=== PATIENT | female | born 1975 ===

== ENCOUNTER 2024-05-16 12:44 | Outpatient (CLI) | payer OTHER, SELFPAY ==
--- OUTSIDE RECORDS SUMMARY | 2024-05-16 14:07 | XMS_ITS | Referral Summary ---
Author Organization [facility] Address [address] [place] [address] [place] [address] Care Team Providers Care Residential Finish Carpenter Name Role Phone Dee Jewell MD Primary Care Provider [phone] Adamaris Harris MD Unavailable [phone] Allergies No known active allergies Medications hydroCHLOROthiazide (HYDRODIURIL) 25 mg tablet Take 1 tablet (25 mg total) by mouth daily Active gabapentin (NEURONTIN) 300 mg capsule Take 1 capsule (300 mg total) by mouth 3 (three) times a day Active promethazine-DM (PROMETHAZINE-DM) 1.25-3 mg/mL syrup Take 5 mL by mouth 4 (four) times a day as needed for cough 118 mL 2 Active omeprazole (PriLOSEC) 20 mg capsule Take 1 capsule (20 mg total) by mouth daily 2 Active ferrous sulfate 325 mg (65 mg of elemental iron) tablet Take 1 tablet (325 mg total) by mouth daily 2 Active cyclobenzaprine (FLEXERIL) 10 mg tablet Take 1 tablet (10 mg total) by mouth nightly as needed 2 Active aspirin 81 mg enteric coated tabletIndications:Ce rebral Thromboembolism Prevention Take 1 tablet (81 mg total) by mouth daily 30 tablet 11 2 Active meloxicam (MOBIC) 15 mg tabletIndications:Os teoarthritis Take 1 tablet (15 mg total) by mouth daily 30 tablet 2 4 08/01/19 25 Active naproxen (NAPROSYN) 500 mg tablet Take 1 tablet (500 mg total) by mouth 2 (two) times a day with meals 10 tablet 4 Active Active Problems Problem Noted Date Diagnosed Date Encounter for screening for malignant neoplasm o f colon 05/27/2023 Rectal bleed 05/20/2023 Hyperlipidemia 12/11/2022 TIA (transient ischemic attack) 02/08/2022 Left-sided weakness 02/07/2022 Influenza A 01/31/2022 Nonintractable headache 01/31/2022 Chronic midline low back pain with bilateral sci atica 07/22/2021 Paresthesia of both hands 07/22/2021 Gastroesophageal reflux disease without esophagi tis 07/03/2020 Generalized abdominal pain 07/03/2020 Other constipation 07/03/2020 Essential hypertension 04/03/2020 Neck sprain 06/12/2015 Overview (06/04/2016): Neck sprain Contusion of hip 06/12/2015 Overview (06/04/2016): Contusion of hip Hyperventilating 08/31/2010 Complicated migraine Immunizations Immunization Administration Dates Next Due Tdap 05/28/2014 Social History Tobacco Use Types Packs/Day Years Used Date Smoking Tobacco: Every Day Cigarettes 0.1 20 Smokeless Tobacco: Never Tobacco Cessation:Ready to Q uit: Not Asked; Counseling Given: Not Answered Comments:Smoking History Packs/day: 5 Cigarettes Alcohol Use Standard Drinks/Week Comments No 0 (1 standard drink = 0.6 oz pur e alcohol) AUDIT-C Answer Date Recorded Q1: How often do you have a drink containing alcohol? Never 10/14/2023 Q2: How many drinks containi ng alcohol do you have on a typical day when you are drinking? Patient does not drink Q3: How often do you have si x or more drinks on one occasion? Never 10/14/2023 PHQ-2 Answer Date Recorded PHQ-2 Total Score 0 02/08/2022 Personal Safety Answer Date Recorded Have you ever been in or are you currently in a harmful physical or emotional relationship or is someone making you feel afraid or unsafe? 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 Gender Identity Female 05/26/2023 1:21 PM CDT Sexual Orientation Not on file Last Filed Vital Signs Vital Sign Reading Time Taken Comments Blood Pressure 127/98 10/14/2023 12:45 PM CDT Pulse 88 10/14/2023 12:45 PM CDT Temperature 36.7 C (98.1 F) 10/14/2023 10:36 AM CDT Respiratory Rate 20 10/14/2023 12:45 PM CDT Oxygen Saturation 97% 10/14/2023 12:45 PM CDT Inhaled Oxygen Concentration - - Weight 77.1 kg (170 lb) 10/14/2023 10:36 AM CDT Height 165.1 cm (5' 5 ) 10/14/2023 10:36 AM CDT Body Mass Index 28.29 10/14/2023 10:36 AM CDT Plan of Treatment Not on file Procedures Procedure Name Priority Date/Time Associated Diagnosis Comments COLONOSCOPY 10/14/2023 10:31 AM CDT SCREENING MAMMOGRAM BILATERAL W REDD Schedule Routine, Read Routine (OP Routine) 08/05/2023 2:58 PM CDT Screening breast examination from Last 3 Months or Most Recently Relevant to Health Maintenance Results * Colonoscopy (10/14/2023 10:31 AM CDT) Anatomical Region Laterality Modality Other Narrative Procedure Note Adamaris Harris MD - 10/14/2023 10:31 AM CDT [facility] Endoscopy [facility] Patient Name: Shilpa Martinez Procedure Date: 10/14/2023 10:31 AM Date of : 1975 Admit Type: Outpatient Age: 48 Gender: Female Note Status: Finalized Attending MD: Adamaris Harris M.D. Procedure Date: 10/14/2023 Procedure: Colonoscopy Indications: Colon cancer screening in patient at increasedrisk: Colorectal cancer in father, This is the patient's first colonoscopy Providers: Adamaris Harris M.D., [place], PALMA (Anesthesia Staff), Yoly Cardozo, SHAYY, Lemuel Ludwig, Head And Neck Surgeon, Keiry Puente RN Referring MD: Medicines: Monitored Anesthesia Care Complications: No immediate complications. Estimated Blood Loss: Estimated blood loss: none. Procedure: Pre-Anesthesia Assessment: - Prior to the procedure, a History and Physicalwas performed, and patient medications and allergieswere reviewed. The patient is competent. The risks and benefits of the procedure and the sedation optionsand risks were discussed with the patient. Allquestions were answered and informed consent was obtained. Patient identification and proposed procedure were verified by the physician, the nurse and the art gilder in the procedure room. Mental Status Examination: alert and oriented. AirwayExamination: normal oropharyngeal airway and neck mobility. Respiratory Examination: clear to auscultation. CV Examination: normal. Prophylactic Antibiotics: The patient does not require prophylactic antibiotics. Prior Anticoagulants: The patient has taken no anticoagulant or antiplatelet agents. ASA Grade Assessment: III - A patient with severe systemic disease. After reviewing the risks and benefits,the patient was deemed in satisfactory condition to undergo the procedure. The anesthesia plan was touse monitored anesthesia care (MAC). Immediately priorto administration of medications, the patient was re-assessed for adequacy to receive sedatives. The heart rate, respiratory rate, oxygen saturations, blood pressure, adequacy of pulmonary ventilation,and response to care were monitored throughout the procedure. The physical status of the patient was re-assessed after the procedure. - The risks and benefits of the procedure and the sedation options and risks were discussed with the patient. All questions were answered and informed consent was obtained. After I obtained informed consent, the scope was passed under direct vision. Throughout theprocedure, the patient's blood pressure, pulse, and oxygen saturations were monitored continuously. The scopewas passed under direct vision. The Colonoscope was introduced through the anus and advanced to the the cecum, identified by appendiceal orifice andileocecal valve. The colonoscopy was performed without difficulty. The patient tolerated the procedurewell. The quality of the bowel preparation was adequate.The bowel preparation used was Clenpiq via split dose instruction. Findings: The entire examined colon appeared normal on direct and retroflexion views. Impression: - The entire examined colon is normal on direct and retroflexion views. - No specimens collected. Recommendation: - The following measures may reduce the risk ofcolon cancer: High fiber diet and low fat diet (especiallyreduction of red meat consumption). Supplement with 400-800mg vitamin E, 800 - 1000 mcg folic acid, 200 mgselinium and 7125-0572 mg calcium. Exercise has been shownto be beneficial. It has also been reported thatregular use of aspirin can reduce the risk of cancer - 325mg daily four or more times per week. Aspirin use can cause bleeding (stomach ulcers). Aspirin andvitamin E should not be used for 2 weeks if biopsy or polyps have been removed. - Repeat colonoscopy in 5 years for screeningpurposes. Procedure Code(s): --- Professional --- 78846, Colonoscopy, flexible; diagnostic, including collection of specimen(s) by brushing or washing,when performed (separate procedure) Diagnosis Code(s): --- Professional --- Z80.0, Family history of malignant neoplasm of digestive organs CPT copyright 2020 [employer]. All rights reserved. The codes documented in this report are preliminary and upon industrial renderer reviewmay be revised to meet current compliance requirements. Electronically signed by Adamaris Harris M.D. Adamaris Harris M.D. 10/14/2023 12:20:09 PM Number of Addenda: 0 Note Initiated On: 10/14/2023 10:31 AM Adamaris Harris MD ENDOSCOPY PROCEDURES Fi nal Result * Screening Mammogram Bilateral W Redd (08/05/2023 2:58 PM CDT) Anatomical Region Laterality Modality Breast Bilateral Mammography 08/08/2023 8:39 AM CDT Impressions 08/08/2023 8:39 AM CDT No evidence of malignancy in either breast. FINAL ASSESSMENT: BI-RADS Category 1: Negative. RECOMMENDATION: Recommend return for annual screening mammogram in 12 months. Electronically signed by: Miya Worthington M.D. Narrative 08/08/2023 8:39 AM CDT EXAMINATION: BILATERAL SCREENING MAMMOGRAM COMPARISON: 09/23/2018 and 07/21/2015 TECHNIQUE: Full-field 2D and digital breast tomosynthesis (DBT) images were obtained. CAD was utilized. BREAST PARENCHYMAL COMPOSITION: There are scattered areas of fibroglandular density. FINDINGS: There is no suspicious mass, calcification, or distortion in either breast. Clari Hamilton NP IMG MAMMO PROCEDURES Final Result from Last 3 Months or Most Recently Relevant to Health Maintenance Insurance [facility] Advance Directives For more information, please contact: [phone] * Full Code (Latest Code Status on File) Date Activated Date Inactivated Comments 05/20/2023 4:51 PM 05/22/2023 4:28 PM * Full Code Date Activated Date Inactivated Comments 02/07/2022 9:33 PM 02/09/2022 8:31 PM Care Teams Residential Finish Carpenter Relationship Specialty Start Date End Date Dee Jewell MD [address] [place] [address] PCP - General Family Medicine 05/20/23 [place] [id number] [address] Consulting Physician Gastroenterology 05/22/23
--- OUTSIDE RECORDS SUMMARY | 2024-05-16 14:07 | XMS_ITS | Clinical Summary ---
Author Organization [facility] Address [address] [place] [address] [place] [address] Care Team Providers Care Biological Science Technician Fish Name Role Phone Dee Jewell MD Primary Care Provider [phone] Adamaris Harris MD Unavailable [phone] Allergies No known active allergies Medications hydroCHLOROthiazide [...] times a day with meals 10 tablet Active Active Problems Problem Noted Date Diagnosed [...] Immunization Administration Dates Next Due Tdap 05/28/2014 Surgical History Surgery Date Site/Laterality Comments OTHER SURGICAL HISTORY 02/29/1996 - 02/27/1997 : OTHER SURGICAL HISTORY 02/28/1989 - 02/27/1990 : OTHER SURGICAL HISTORY 02/28/2001 - 02/27/2002 : OTHER SURGICAL HISTORY 02/28/2003 - 02/28/2004 : OTHER SURGICAL HISTORY 02/28/2003 - 02/28/2004 : OTHER SURGICAL HISTORY 02/28/2005 - 02/27/2006 : Ectopic OTHER SURGICAL HISTORY 02/28/2007 - 02/28/2008 : OTHER SURGICAL HISTORY 02/28/2013 - 02/27/2014 : Spontaneaous OTHER SURGICAL HISTORY 02/28/2013 - 02/27/2014 : Spontaneaous SECTION COLONOSCOPY 10/14/2023 Medical History Medical History Date Comments Hx Other Medical ; Outc ome: 40W0D week 7lb(s) 10 oz Male Hx Other Medical ; Comm ents: c/b PTD, eclampsia; pt was a teen- I didn't know I was until that day , reports monthly bleeding; woke up, felt poorly, seized; given up for adoption Hx Other Medical ; Outc ome: 40W0D week 7lb(s) 8 oz Female Hx Other Medical ; Comm ents: TIUP; Outcome: 28W0D week 2lb(s) 10 oz Female Hx Other Medical ; Comm ents: TIUP; Outcome: 28W0D week 2lb(s) 8 oz Female Hx Other Medical ; Comm ents: salpingectomy ?side Hx Other Medical ; Outc ome: 39W0D week 7lb(s) 12 oz Male Hx Other Medical Migraines Hypertension TIA (transient ischemic attack) Arthritis Neuropathy GERD (gastroesophageal reflux disease) Chronic constipation Hemorrhoid Colon polyp Anemia Family History Medical History Relation Name Comments Colon cancer Father Cancer, colon; Diabetes Father Diabetes mellit us; Hypertension Father Hypertension; Other Father Blood clots, le gs; Breast cancer Father's Sister Diabetes Mother Diabetes mellit us; Heart attack Mother heart attack; Heart failure Mother Congestive hea rt failure; Hyperlipidemia Mother High choleste rol; Hypertension Mother Hypertension; Stroke Mother Stroke; Relation Name Status Comments Father Father's Sister Mother Social History Tobacco Use Types Packs/Day Years [...] on file Legal Sex Female 1:59 PM TECHNICAL SUPPORT 1 SOFTWARE ENGINEER Gender Identity Female 05/26/2023 1:21 PM CDT Sexual Orientation Not on file Obstetrics History Para Term AB IAB SAB Ectopic Multiple Livin g Live Births 6 5 5 Date Outcome GA Total Labor Labor/2nd/3rd Weight Sex Type Anes PTL Gracie A1 A5 Name Clin Term Term Term Term Term Last Filed Vital Signs Vital Sign Reading [...] 10/14/2023 10:36 AM CDT Plan of Treatment Health Maintenance Due Date Last Done Comments Cervical Cancer Screening 1975 Hepatitis C Screening 1975 Hepatitis B Screening 08/10/1991 Regular Well Visit/Exam 18-64 08/10/1991 Pneumococcal vaccine <65 (1 of 2 - PCV) 1992 Depression Screening 02/07/2023 02/07/2022, 02/08/20 22 Zoster Vaccine (1 of 2) 08/10/2023 Influenza Vaccine (#1) 2023 DTaP/Tdap/Td Vaccine (2 - Td or Tdap) 05/28/2024 05/28/2014 Breast Cancer Screening-Mammogram 08/04/2024 08/05/2023, 09/23/2018, 09/23/2018, Additional history exists Colon Cancer Screening-Colonoscopy 10/13/20332023 Procedures Procedure Name Priority Date/Time Associated Diagnosis [...] Harris MD - 10/14/2023 10:31 AM CDT [facility] Endoscopy Lab Patient Name: Shilpa Martinez Procedure Date: 10/14/2023 10:31 AM Date of : 1975 Admit Type: Outpatient Age: 48 Gender: Female Note Status: Finalized Attending MD: Adamaris Harris M.D. Procedure Date: 10/14/2023 Procedure: Colonoscopy Indications: Colon cancer screening [facility]: Colorectal cancer in father, This is the patient's first colonoscopy Providers: Adamaris Harris M.D., [place], PALMA (Anesthesia Staff), Yoly Cardozo RN, Lemuel Ludwig, Beam Warper, Keiry Puente RN Referring MD: Medicines: Monitored [...] by the physician, the nurse and the rodent exterminator in the procedure room. Mental Status Examination: [...] 1000 mcg folic acid, 200 mgselinium and 1264-9122 mg calcium. Exercise has been shownto be [...] for screeningpurposes. Procedure Code(s): --- Professional --- 22698, Colonoscopy, flexible; diagnostic, including collection of specimen(s) by brushing or washing,when performed (separate procedure) Diagnosis Code(s): --- Professional --- Z80.0, Family history of malignant neoplasm of digestive organs CPT copyright 2020 [employer]. All rights reserved. The codes documented in this report are preliminary and upon marble cutter reviewmay be revised to meet current compliance [...] Most Recently Relevant to Health Maintenance Insurance [address] [place] [id number] [facility] [place] [id number] [facility] Advance Directives For more information, please contact: [phone] * Full Code (Latest Code Status on File) Date Activated Date Inactivated Comments 05/20/2023 4:51 PM 05/22/2023 4:28 PM * Full Code Date Activated Date Inactivated Comments 02/07/2022 9:33 PM 02/09/2022 8:31 PM Care Teams Biological Science Technician Fish Relationship Specialty Start Date End Date Dee Jewell MD [address] [place] [address] PCP - General Family Medicine 05/20/23 [place] [id number] [address] Consulting Physician Gastroenterology 05/22/23
--- OUTSIDE RECORDS SUMMARY | 2024-05-16 14:07 | XMS_ITS | Clinical Summary ---
Author Organization [facility] Address [address] [place] [address] Care Team Providers Care Telecommunications Sales Representative Name Role Phone Clinic[facility]on hernandez Primary Care Provider + Source Comments [facility],non-owned Affiliates and Associated Physician Practices is amultiple site organization consisting of ambulatory clinics and hospital sitesin [place], [place], [place] and [place]. This disclosure is being madepursuant to the Care Everywhere program and may not contain all information available regarding this patient. Last updated 17.[facility] Allergies No known active allergies Medications * Be aware that medications may not be up to date on this document. Alwaysverify current medications with the patient. Medication Sig Dispensed Refills Start Date End Date Status HYDROCHLOROTHIAZIDE PO Take by mouth once daily Active polyethylene glycol 3350 (MIRALAX) 17 GM/SCOOP powder Take 17 (seventeen) g by mouth once daily 2 04/03/2020 Active Additional Information Patient taking differently:17 g OralDAILY PRN, Reported on 11/06/2020 Norethindrone-Eth Estradiol (ORTHO-NOVUM , 28, PO) Active psyllium (METAMUCIL) CAPS capsule Take 2 (two) capsules by mouth once daily 60 capsule 3 07/03/2020 Active Additional Information Patient taking differently:2 capsule OralDAILY PRN, Reported on 11/06/2020 famotidine (PEPCID) 20 MG tabletIndications:G astroesophageal reflux disease without esophagitis Take 1 (one) tablet by mouth 2 times daily 180 tablet 2 07/11/2020 Active cyclobenzaprine (FLEXERIL) 5 MG tablet Take 10 mg by mouth nightly as needed Active naproxen (Naprosyn) 500 MG tablet Take 1 (one) tablet by mouth 2 times daily as needed for Pain 20 tablet 05/13/2022 Active Active Problems Problem Noted Date Diagnosed Date Chronic midline low back pain with bilateral sci atica 07/22/2021 Paresthesia of both hands 07/22/2021 Generalized abdominal pain 07/03/2020 Other constipation 07/03/2020 Gastroesophageal reflux disease without esophagi tis 07/03/2020 Essential hypertension 04/03/2020 Hyperventilating 08/31/2010 Family History Medical History Relation Name Comments Clotting Disorder Father Diabetes Mother Heart Disease Mother Hypertension Mother Kidney Disease Mother Stroke Mother Relation Name Status Comments Father Mother Social History Tobacco Use Types Packs/Day Years Used Date Smoking Tobacco: Every Day Cigarettes 0.5 10 Smokeless Tobacco: Never Tobacco Cessation:Ready to Q uit: Yes; Counseling Given: Yes Alcohol Use Standard Drinks/Week Comments No 0 (1 standard drink = 0.6 oz pur e alcohol) Sex and Gender Information Value Date Recorded Sex Assigned at Female 07/03/2023 7:43 PM CDT Gender Identity Female 07/03/2023 7:43 PM CDT Sexual Orientation Straight 07/03/2023 7: 43 PM CDT Last Filed Vital Signs Vital Sign Reading Time Taken Comments Blood Pressure 146/86 05/13/2022 12:23 AM CDT Pulse 103 05/13/2022 12:23 AM CDT Temperature 36.9 C (98.4 F) 05/13/2022 12:23 AM CDT Respiratory Rate 18 05/13/2022 12:23 AM CDT Oxygen Saturation 98% 05/13/2022 12:23 AM CDT Inhaled Oxygen Concentration - - Weight 77.1 kg (170 lb) 05/13/2022 12:23 AM CDT Height 165.1 cm (5' 5 ) 05/13/2022 12:23 AM CDT Body Mass Index 28.29 05/13/2022 12:23 AM CDT Plan of Treatment Health Maintenance Due Date Last Done Comments COLOGUARD (AGES 45-75) - COL ON CA SCREENING 1973 CT COLONOGRAPHY - COLON CA SCREENING 1975 FIT - COLON CA SCREENING 1973 FLEX SIG - COLON CA SCREENING 1973 MAMMOGRAM 1973 PAP SMEAR 1973 HIV SCREENING 1988 DTAP/TDAP/TD VACCINES (1 - Tdap) 1992 HEPATITIS B VACCINE (1 of 3 - 19+ 3-dose series) 1992 PNEUMOCOCCAL VACCINE 50+ (1 of 2 - PCV) 1992 PNEUMOCOCCAL VACCINE (1 of 2 - PCV) 1992 SCREENING FOR DIABETES 04/03/2020 12/10/2011 ZOSTER VACCINE (1 of 2) 08/10/2023 COVID-19 VACCINE (3 - 2023-2 5 season) 2023 11/24/2020, 04/10/2020 INFLUENZA VACCINE (#1) 2023 DEPRESSION SCREENING 02/29/2024 LIPID TESTING 02/08/2027 02/08/2022 COLON MONITORING 06/17/2030 06/17/2020, 06/17/2020 COLONOSCOPY - COLON CA SCREENING 06/17/2030 06/17/2020, 06/17/2020 Colorectal Cancer Screening 06/17/2030 HEPATITIS C SCREENING Completed 04/03/2020 HIB VACCINE Aged Out No longer eligi ble based on patient's age to complete this topic HPV VACCINE Aged Out No longer eligi ble based on patient's age to complete this topic MENINGOCOCCAL (Group B) VACCINE SHARED DECISION-MAKING Aged Out No longer eligible based on patient's age to complete this topic MENINGOCOCCAL GROUPS A/C/Y/W VACCINE Aged Out No longer eligible b ased on patient's age to complete this topic Goals Goal Patient Goal Type Associated Problems Recent Progress Patient-Stated? Author Medication Management General On track( 021 2:01 PM CDT) Adelita Gagnon, RN Note: Expected end date: ONGOING Interventions: Take all medications as prescribed Let your doctor know right away about any changes in your medications Make sure to request a refill of your medication at least one week prior to your last dose Procedures Procedure Name Priority Date/Time Associated Diagnosis Comments ENDOSCOPY, COLON, SCREENING Routine 06/17/2020 10:52 AM CDT HEPATITIS C ANTIBODY Routine 04/03/2020 2:43 PM [employer] HEL[employer] Generalized abdominal pain COMPREHENSIVE METABOLIC PANEL STAT 12/10/2011 6:15 AM CDT from Last 3 Months or Most Recently Relevant to Health Maintenance Results * ENDOSCOPY, COLON, SCREENING (06/17/2020 10:52 AM CDT) Report Endoscopy POC Endoscopy Department Report _ Patient Name: Shilpa Watson Procedure Date: 06/17/2020 10:52 AM Date of : 1975 Classification: Outpatient Gender: Female Ethnicity: Not or Race: Black or _ Providers: Juan Glynn MD, Lazaro Mattson (Fellow) Referring MD: [facility] Holman (Referring MD) Procedure: Colonoscopy Indications: Screening for colorectal malignant neoplasm, Screening patient at increased risk: Family history of 1st-degree relative with colorectal cancer at age 60 years (or older) Medications: Monitored Anesthesia Care Description of Procedure: Pre-Anesthesia Assessment: - Prior to the procedure, a History and Physical was performed, and patient medications and allergies were reviewed. The patient's tolerance of previous anesthesia was also reviewed. The risks and benefits of the procedure and the sedation options and risks were discussed with the patient. All questions were answered, and informed consent was obtained. Prior Anticoagulants: The patient has taken no previous anticoagulant or antiplatelet agents. ASA Grade Assessment: II - A patient with mild systemic disease. After reviewing the risks and benefits, the patient was deemed in satisfactory condition to undergo the procedure. After I obtained informed consent, the scope was passed under direct vision. Throughout the procedure, the patient's blood pressure, pulse, and oxygen saturations were monitored continuously. The [id number] was introduced through the anus and advanced to the terminal ileum. The colonoscopy was performed without difficulty. The patient tolerated the procedure well. The quality of the bowel preparation was evaluated using the BBPS ([place] Bowel Preparation Scale) with scores of: Right Colon = 3, Transverse Colon = 3 and Left Colon = 3 (entire mucosa seen well with no residual staining, small fragments of stool or opaque liquid). The total BBPS score equals 9. The terminal ileum, ileocecal valve, appendiceal orifice, and rectum were photographed. Findings: Hemorrhoids were found on perianal exam. The terminal ileum appeared normal. A 10 mm polyp was found in the sigmoid colon. The polyp was sessile. The polyp was removed with a cold snare. Resection and retrieval were complete. Verification of patient identification for the specimen was done by the nurse and eeg technician using the patient's name, date and medical record number. Estimated blood loss was minimal. To prevent bleeding after the polypectomy, one hemostatic clip was successfully placed. There was no bleeding at the end of the procedure. A few small-mouthed diverticula were found in the sigmoid colon. Internal hemorrhoids were found during retroflexion. Estimated Blood Loss: Estimated blood loss was minimal. Complications: No immediate complications. Estimated blood loss: Minimal. Impression: - Hemorrhoids found on perianal exam. - The examined portion of the ileum was normal. - One 10 mm polyp in the sigmoid colon, removed with a cold snare. Resected and retrieved. Clip was placed. - Diverticulosis in the sigmoid colon. - Internal hemorrhoids. Recommendation: - Patient has a contact number available for emergencies. The signs and symptoms of potential delayed complications were discussed with the patient. Return to normal activities tomorrow. Written discharge instructions were provided to the patient. - Resume previous diet. - Continue present medications. - Await pathology results. - Repeat colonoscopy in 5 years for surveillance based on pathology results. - Return to GI clinic as previously scheduled. Attending Participation: I was present and participated during the entire procedure, including non-alcaraz portions. Procedure Code(s): --- Professional --- 93187, Colonoscopy, flexible; with removal of tumor(s), polyp(s), or other lesion(s) by snare technique Diagnosis Code(s): --- Professional --- Z12.11, Encounter for screening for malignant neoplasm of colon Z80.0, Family history of malignant neoplasm of digestive organs K64.8, Other hemorrhoids K63.5, Polyp of colon K57.30, Diverticulosis of large intestine without perforation or abscess without bleeding CPT copyright 2019 [employer] [place] [employer]. All rights reserved. The codes documented in this report are preliminary and upon traffic lieutenant review may be revised to meet current compliance requirements. Juan Glynn MD 06/17/2020 11:45:19 AM This report has been signed electronically. Note Initiated On: 06/17/2020 10:52 AM Number of Addenda: [address] 06/17/2020 10:5 2 AM CDT Juan Darling MD GI PROCEDU RE ORDERABLES [facility] * HEPATITIS C ANTIBODY (04/03/2020 2:43 PM [facility] HEL[employer]) Hepatitis C Antibody Non-react bhargav Non-reac tive 04/03/2020 4:45 PM [facility] HELPER [facility] Comment:Hepatitis C Antibody screen indicates no serologic evidence of past or current infection with Hepatitis C Virus. Patients with unexplained liver disease who are immunocompromised or suspected of having acute Hepatitis C infection may benefit from Nucleic Acid Test ([place]) for Hepatitis C Viral RNA to confirm Hepatitis C status. Blood BLOOD SPECIMEN / Unknown Lab Venipuncture / Unknown 04/03/2020 2:43 PM [employer] OPERATOR HELPER 04/03/2020 3:56 PM [employer]PER[employer] HELPER Renate Pinto MD LAB - CHEMISTRY OR DERABLES [facility] [address] [place] [address], [facility] [phone] * (ABNORMAL) COMPREHENSIVE METABOLIC PANEL (12/10/2011 6:15 AM CDT) Sodium 141 136 - 145 mmol/L [facility] Potassium 3.8 3.5 - 5.1 mmol/L [facility] Chloride 108(H) 98 - 107 mmol/L [facility] BUN 10 7 - 21.0 mg/dl [facility] Creatinine 0.49(L) 0.5 - 1.3 mg/dl [facility] Glucose 90 65 - 105 mg/dl [facility] Calcium 8.5 8.5 - 10.1 mg/dl [facility] Alkaline Phosphatase 47 38 - 126 U/L [facility] AST 8 5.0 - 40 U/L [facility] Bilirubin Total 0.3 0.2 - 1.0 mg/dl [facility] Protein Total 7.2 6.4 - 8.2 gm/dl [facility] Albumin 3.9 3.4 - 5.0 gm/dl [facility] CO2 27 22 - 30 mmol/L [facility] ALT 19 12.0 - 78.0 U/L [facility] eGFR by MDRD >60 >60 mL/min/1.7 3m2 [facility] Comment eGFR [facility] Comment: The eGFR does not apply to patients who are younger than 18 or older than 70. Blood specimen (specimen) BLOOD SPECIMEN / Unknown 12/10/2011 6:15 AM CDT 12/10/2011 6:23 AM CDT Claudio Black MD LAB - CHEMISTRY JAYSON MCCLELLAN [facility] [address] [place] [address] from Last 3 Months or Most Recently Relevant to Health Maintenance Advance Directives * Full Code (Latest Code Status on File) Date Activated Date Inactivated Comments 02/10/2014 6:15 PM 02/10/2014 7:30 PM Care Teams Telecommunications Sales Representative Relationship Specialty Start Date End Date Clinicp, [facility] Holman [address] [place] [address] PCP - General 07/03/20
--- NOTE | 2024-05-16 14:30 | NEURO_ITS ---
Impression: # Complains of pain in lower extremities. ? # Normal motor and sensory Nerve Conduction Study. ? # Normal needle/EMG exam without any neurogenic changes. ? # Clinical correlation recommended. ?Nerve Conduction Studies Anti Sensory Summary Table ?Stim Site NR Peak (ms) P-T Amp (?V) Site1 Site2 Delta-P (ms) Dist (cm) Wilber (m/s) Left Sup Fibular Anti Sensory (Ant Lat Mall) 14 cm ? 3.0 11.6 14 cm Ant Lat Mall 3.0 16.0 53 Right Sup Fibular Anti Sensory (Ant Lat Mall) 14 cm ? 3.1 14.3 14 cm Ant Lat Mall 3.1 16.0 52 Left Sural Anti Sensory (Lat Mall) Calf ? 3.2 18.6 Calf Lat Mall 3.2 16.0 50 Right Sural Anti Sensory (Lat Mall) Calf ? 3.6 17.7 Calf Lat Mall 3.6 16.0 44 Motor Summary Table ?Stim Site NR Onset (ms) O-P Amp (mV) Site1 Site2 Delta-0 (ms) Dist (cm) Wilber (m/s) Left Peroneal Motor (Vastus Med) Ankle ? 3.8 3.7 Popit Ankle 8.1 43.0 53 Popit ? 11.9 2.8 Right Peroneal Motor (Vastus Med) Ankle ? 3.4 4.8 Popit Ankle 8.2 44.0 54 Popit ? 11.6 7.2 Left Tibial Motor (Abd Vogt Brev) Ankle ? 3.9 5.2 Knee Ankle 8.5 44.0 52 Knee ? 12.4 6.4 Right Tibial Motor (Abd Vogt Brev) Ankle ? 3.8 7.9 Knee Ankle 8.3 43.0 52 Knee ? 12.1 7.7 F Wave Studies ?NR F-Lat (ms) L-R F-Lat (ms) Left Peroneal (Mrkrs) (EDB) ? 46.72 0.16 Right Peroneal (Mrkrs) (EDB) ? 46.88 0.16 Left Tibial (Mrkrs) (Abd Hallucis) ? 48.53 1.63 Right Tibial (Mrkrs) (Abd Hallucis) ? 50.16 1.63 EMG ?Side Muscle Nerve Root Ins Act Fibs Amp Dur Recrt Comment Right AntTibialis Dp Br Fibular L4-5 Nml Nml Nml Nml Nml Right Gastroc Tibial S1-2 Nml Nml Nml Nml Nml Right Fibularis Long Sup Br Fibular L5-S1 Nml Nml Nml Nml Nml Right Flex Dig Long Tibial L5-S2 Nml Nml Nml Nml Nml Right Ext Dig Brev Dp Br Fibular L5, S1 Nml Nml Nml Nml Nml Right QuadratusFem QuadFemoris L4-5, S1 Nml Nml Nml Nml Nml Left AntTibialis Dp Br Fibular L4-5 Nml Nml Nml Nml Nml Left Gastroc Tibial S1-2 Nml Nml Nml Nml Nml Left Fibularis Long Sup Br Fibular L5-S1 Nml Nml Nml Nml Nml Left Flex Dig Long Tibial L5-S2 Nml Nml Nml Nml Nml Left Ext Dig Brev Dp Br Fibular L5, S1 Nml Nml Nml Nml Nml Left QuadratusFem QuadFemoris L4-5, S1 Nml Nml Nml Nml Nml MTDD
== END 2024-05-16 12:45 | disposition home or self-care (01) ==
LOC: ANHNEURO 12:45
PROVIDERS: Visit Provider Orthopaedic Surgery
DX: M79.662 Pain in left lower leg (principal); M79.661 Pain in right lower leg; M54.16 Radiculopathy, lumbar region; M70.71 Other bursitis of hip, right hip
CPT/HCPCS: 95886; 95910